=== PATIENT | male | born 1995 | race Caucasian/White ===

== ENCOUNTER 2018-12-27 15:35 | Emergency (ER) | payer BC, SELFPAY ==
[2018-12-27] MEDS ORDERED: Midazolam HCl 2 mg/2 ml Vial ONE (15:59)
[2018-12-27] MEDS ORDERED: Midazolam HCl 5 mg/ml Vial ONE (15:59)
[2018-12-27] MEDS ORDERED: Adacel (T-DAP) 0.5 ML SYRINGE ONE (16:03)
[2018-12-27] MEDS ORDERED: Lidocaine 1% w/Epinephrine 1:100K 20 ML VIAL ONE (16:03)
[2018-12-27] MEDS ORDERED: Lidocaine 4% Cream 5 GM TUBE w/ Tegaderm ONE (16:26)
== END 2018-12-27 17:35 | disposition home or self-care (01) ==
LOC: ERS 15:35
DX: S01.511A Laceration without foreign body of lip, initial encounter (principal); W22.03XA Walked into furniture, initial encounter
CPT/HCPCS: 12011; 90715; J2001; J2250

== ENCOUNTER 2020-04-07 11:00 | Outpatient (CLI) | payer OTHER ==
--- NOTE | 2020-04-07 11:43 | RAD ---
THORACIC SPINE 3 VIEWS: Date: 04/07/2020 HISTORY: Back pain. FINDINGS/IMPRESSION: No fracture, subluxation, or bony destruction is identified. POS: OFF
== END 2020-04-07 11:01 | disposition home or self-care (01) ==
LOC: RAD-FRANK 11:00
PROVIDERS: ATTEND Nurse Practitioner Family
DX: S29.019A Strain of muscle and tendon of unspecified wall of thorax, initial encounter (principal)
CPT/HCPCS: 72072

== ENCOUNTER 2025-06-16 19:31 | Emergency (ER) | payer OTHER, SELFPAY ==
[2025-06-16 20:28] LABS: #Basophils 0.09 10x3/uL (0.0-0.2); #Eosinophils 0.68 10x3/uL (0.0-0.7); #Monocytes 0.84 10x3/uL (0.11-0.59); #Neutrophils 5.38 10x3/uL (1.40-6.50); %Basophils 0.9 % (0.0-1.0); %Eosinophils 6.9 % (0.0-10.0); %Lymphocytes 28.6 % (21.0-51.0); %Monocytes 8.6 % (0.0-10.0); %Neutrophils 54.8 % (42.0-75.0); Hematocrit 43.1 % (42.0-52.0); Hemoglobin 14.6 g/dL (14.0-18.0); Mean Corpuscular Hemoglobin 31.6 pg (27.0-31.0); Mean Corpuscular Volume 93.3 fL (78.0-98.0); Platelet Count 241 10x3/uL (130-400); Red Blood Cell (RBC) Count 4.62 mill/uL (4.70-6.10); White Blood Cell (WBC) Count 9.82 10x3/uL (4.8-10.8)
[2025-06-16 20:56] LABS: ALT (SGPT) 10 U/L (Less than 45); AST (SGOT) 21 U/L (11-34); Albumin 4.5 g/dL (3.1-4.5); Alkaline Phosphatase 64 U/L (40-110); Anion Gap 14 mmol/L (10-20); BUN (Urea Nitrogen) 16 mg/dL (8.9-20.6); Bilirubin, Total 0.4 mg/dL (0.3-1.2); Calc. Creatinine Clearance 0 mL/min (70-130); Calcium 9.4 mg/dL (7.8-10.44); Carbon Dioxide 24 mmol/L (22-29); Chloride 107 mmol/L (98-107); Globulin 2.5 g/dL (2.4-3.5); Glucose 85 mg/dL (70-105); Lipase 28 U/L (8-78); Potassium 4.0 mmol/L (3.5-5.1); Sodium 141 mmol/L (136-145)
== END 2025-06-16 22:16 | disposition home or self-care (01) ==
LOC: ERS 19:31
DX: R07.9 Chest pain, unspecified (principal)
CPT/HCPCS: 36415; 71045; 80053; 83690; 84484; 85025; 93005